=== PATIENT | female | born 1985 | race American Indian/Alaskan Native ===

== ENCOUNTER 2017-10-24 21:29 | Emergency (ER) | payer SELFPAY ==
[2017-10-24 21:38] VITALS: BP 124/72
--- NOTE | 2017-10-24 22:59 | Emergency Department Report ---
ED Female HPI - General Chief complaint: Urogenital-Female Stated complaint: VAGINAL BLEEDING Time Seen by Provider: 10/24/17 22:54 Source: patient Mode of arrival: Ambulatory Limitations: No Limitations - History of Present Illness Initial comments: Patient presents with vaginal spotting started today states she saw a pink discharge 2 episodes no bleeding or spotting since last menstrual period 2017 with no back pain no nausea vomiting no belly pain no dysuria frequency urgency no vaginal discharge , after questiong of Symptoms patient states she just wanted know she was Complaint: vaginal bleeding Onset/Timin -: days(s) Severity: mild Severity scale (0 -10): 0 Improves with: none Worsens with: none Are you Now?: No Last Menstrual Period: 09/17/17 EDC: 06/24/18 Associated Symptoms: denies other symptoms - Related Data Sexually active: Yes : 3 Para: 3 A: 0 Allergies Allergy/AdvReac Type Severity Reaction Status Date / Time No Known Allergies Allergy Unverified 10/24/17 21:38 ED Review of Systems ROS: Stated complaint: VAGINAL BLEEDING Other details as noted in HPI Constitutional: denies: chills, fever Eyes: denies: eye pain, eye discharge, vision change ENT: denies: ear pain, throat pain Respiratory: denies: cough, shortness of breath, wheezing Cardiovascular: denies: chest pain, palpitations Endocrine: no symptoms reported Gastrointestinal: denies: abdominal pain, nausea, diarrhea Genitourinary: denies: urgency, dysuria, discharge Musculoskeletal: denies: back pain, joint swelling, arthralgia Skin: denies: rash, lesions Neurological: as per HPI Psychiatric: denies: anxiety, depression Hematological/Lymphatic: denies: easy bleeding, easy bruising ED Past Medical Hx - Past Medical History Previous Medical History?: No - Surgical History Past Surgical History?: No - Social History Smoking Status: Never Smoker Substance Use Type: None ED Physical Exam - General Limitations: No Limitations General appearance: alert, in no apparent distress - Head Head exam: Present: atraumatic, normocephalic - Eye Eye exam: Present: normal appearance - ENT ENT exam: Present: mucous membranes moist - Neck Neck exam: Present: normal inspection - Respiratory Respiratory exam: Present: normal lung sounds bilaterally. Absent: respiratory distress - Cardiovascular Cardiovascular Exam: Present: regular rate, normal rhythm. Absent: systolic murmur, diastolic murmur, rubs, gallop - GI/Abdominal GI/Abdominal exam: Present: soft, normal bowel sounds - Rectal Rectal exam: Present: deferred - External exam: Present: other (pt defers for OBGYN ) - Extremities Exam Extremities exam: Present: normal inspection - Back Exam Back exam: Present: normal inspection - Neurological Exam Neurological exam: Present: alert, oriented X3 - Psychiatric Psychiatric exam: Present: normal affect, normal mood - Skin Skin exam: Present: warm, dry, intact, normal color. Absent: rash ED Course Vital Signs 10/24/17 21:34 Temperature 98.7 F Pulse Rate 83 Respiratory 16 Rate Blood Pressure 124/72 O2 Sat by Pulse 99 Oximetry ED Medical Decision Making - Lab Data Laboratory Tests 10/24/17 21:49 HCG, Quant < 2 - Medical Decision Making Patient initially presented for vaginal spotting now admits wound to know she was hCG Quant is less than 2 patient advised of same will follow with PCP in 2-3 days and/or as needed patient denies vaginal exam denies possibility of STD refuses further workup Critical care attestation.: If time is entered above; I have spent that time in minutes in the direct care of this critically ill patient, excluding procedure time. ED Disposition Clinical Impression: Vaginal spotting Disposition: DC-01 TO HOME OR SELFCARE Is pt being admited?: No Does the pt Need Aspirin: No Condition: Good Instructions: Menstruation (ED) Referrals: [facility] [Outside] - 3-5 Days Forms: Work/School Release Form(ED) Time of Disposition: 23:00
[2017-10-25 00:13] LABS: Bacteria,Urine 1+ /HPF (Negative)
[2017-10-25 00:30] LABS: Color,Urine Yellow (Yellow)
[2017-10-25 00:31] LABS: Bilirubin,Urine Negative (Negative); Blood,Urine 1+ (Negative); Protein,Urine <15 mg/dL mg/dL (Negative); Urobilinogen,Urine < 2.0 mg/dL (<2.0)
== END 2017-10-24 23:00 | disposition home or self-care (01) ==
LOC: ED 21:29
DX: N93.9 Abnormal uterine and vaginal bleeding, unspecified (principal)
CPT/HCPCS: 36415; 81001; 84702; 99283